=== PATIENT | female | born 1960 | race Asian ===

== ENCOUNTER 2023-11-04 00:54 | Inpatient (IN) | payer BC, OTHER ==
[~2023-11-04] VITALS: Ht 157.5 cm; Wt 68.2 kg
[2023-11-04] VITALS (7 sets, daily range): BP systolic 118–169; PULSE 71–99; RESP 16–18; TEMP 97.7–98.8; O2SAT 96–98
[2023-11-04] MEDS ORDERED: ENALAPRILAT DIHYDRATE 1.25 MG/ML VIAL ONE (02:07)
[2023-11-04 02:23] LABS: BASOPHILS # (AUTO) 0.1 K/uL (0.0-0.2); EOSINOPHILS # (AUTO) 0.8 K/uL (0.0-0.4); EOSINOPHILS % (AUTO) 9.9 % (0.0-4.0); HEMATOCRIT 35.6 % (36-48); LYMPHOCYTES # (AUTO) 2.3 K/uL (1.0-5.5); LYMPHOCYTES % (AUTO) 29.2 % (20.5-51.5); MEAN CORPUSCULAR HEMOGLOBIN 30 pg (27-31); MEAN CORPUSCULAR HGB CONC 34 % (32-36); MEAN CORPUSCULAR VOLUME 88 fL (79.0-98.0); MONOCYTES # (AUTO) 0.5 K/uL (0.0-1.0); MONOCYTES % (AUTO) 6.5 % (1.7-9.3); NEUTROPHILS # (AUTO) 4.3 K/uL (1.8-7.7); NEUTROPHILS % (AUTO) 53.4 % (40.0-70.0); PLATELET COUNT (AUTO) 425 K/uL (130-430); RED BLOOD CELL COUNT(AUTO) 4.07 MIL/uL (4.2-6.2); RED CELL DISTRIBUTION WIDTH 13.2 % (9.0-15.0)
[2023-11-04 02:37] LABS: ALANINE AMINOTRANSFERASE 24 U/L (12-78); ANION GAP 8 (5-15); ASPARTATE AMINOTRANSFERASE 23 U/L (10-37); CALCIUM 9.7 mg/dL (8.4-11.0); CARBON DIOXIDE 27 mmol/L (23-29); CHLORIDE 105 mmol/L (98-107); CREATININE 0.74 mg/dL (0.55-1.30); GFR AFRICAN AMERICAN 102 mL/min (>90); GLUCOSE 124 mg/dL (74-106); POTASSIUM 3.9 mmol/L (3.5-5.1); SODIUM SERUM 140 mmol/L (136-145); TOTAL BILIRUBIN 0.5 mg/dL (0.0-1.0); TOTAL PROTEIN, SERUM 8.3 g/dL (6.4-8.3); UREA NITROGEN, BLOOD 10 mg/dL (8-21)
[2023-11-04 02:41] LABS: GFR NON AFRICAN-AMERICAN 85 mL/min (>90)
[2023-11-04 02:52] LABS: BILIRUBIN,DIRECT 0.1 mg/dL (0.0-0.3)
[2023-11-04] MEDS: ENALAPRILAT DIHYDRATE 1.25 MG/ML VIAL IVP ONE (03:02)
[2023-11-04] MEDS: ENOXAPARIN SODIUM 60 MG/0.6 ML SYRINGE SUBCUT ONE (03:09)
[2023-11-04] MEDS ORDERED: LISI20TA30 PO ×2 (03:14→18:14)
[2023-11-04] MEDS ORDERED: ASPI-1393 PO (03:14)
[2023-11-04] MEDS ORDERED: METF-1069 PO (03:14)
[2023-11-04] MEDS ORDERED: cloNIDine HCL 0.1 MG TABLET PO PRN (03:15)
[2023-11-04] MEDS ORDERED: NITROGLYCERIN 0.4 MG TAB.SUBL SL ONE (03:15)
[2023-11-04] MEDS: ASPIRIN 81 MG TABLET(ECOTRIN) PO ONE (06:32)
[2023-11-04] MEDS ORDERED: ROSU5TAB43 PO (06:51)
[2023-11-04] MEDS ORDERED: ACETAMINOPHEN 325 MG TABLET PO PRN (07:00)
[2023-11-04] MEDS ORDERED: ROSUVASTATIN CALCIUM 5 MG/TAB (CRESTOR) PO SCH (09:00)
[2023-11-04] MEDS: METOPROLOL TARTRATE 25 MG TABLET PO SCH (09:00)
[2023-11-04] MEDS: ATORVASTATIN 20 MG TABLET PO SCH (09:00)
[2023-11-04] MEDS: ASPIRIN 81 MG TABLET(ECOTRIN) PO SCH (09:57)
[2023-11-04] MEDS: LORazepam 2 MG/ML VIAL IVP ONE (10:46)
[2023-11-04] MEDS ORDERED: iohexoL 350 mgI/mL, 100 ML INFUS..BTL IV ONE (15:38)
[2023-11-04] MEDS ORDERED: Aspirin Ec PO (18:14)
[2023-11-04] MEDS ORDERED: METO25TA6 PO (18:14)
[2023-11-04] MEDS ORDERED: ENOXAPARIN SODIUM 60 MG/0.6 ML SYRINGE SUBCUT SCH (21:00)
[2023-11-04] MEDS ORDERED: ENOXAPARIN SODIUM 60 MG/0.6 ML SYRINGE SUBCUT ONE (21:00)
== END 2023-11-04 18:50 | disposition home or self-care (01) | DRG 281 ==
LOC: SED 00:54 → STU 03:06
PROVIDERS: ADMIT Internal Medicine; ATTEND Internal Medicine
DX: I20.89 Other forms of angina pectoris (principal); G45.9 Transient cerebral ischemic attack, unspecified; I21.A1 Myocardial infarction type 2; I16.0 Hypertensive urgency; E78.5 Hyperlipidemia, unspecified; Z79.899 Other long term (current) drug therapy; Z79.84 Long term (current) use of oral hypoglycemic drugs; R73.03 Prediabetes
CPT/HCPCS: 36415; 70498; 70551; 71045; 80048; 80076; 83880; 84484; 85025; 85379; 93005; 93306; 93880; 96372; 96374; 99285; G0378; J1650; J2060; Q9967